=== PATIENT | male | born 1960 | race Caucasian/White ===

== ENCOUNTER 2020-01-28 07:28 | Outpatient (CLI) | payer OTHER, SELFPAY ==
[2020-01-28 20:12] LABS: COVID-19 RT-PCR UVMMC Result Negative (Negative)
== END 2020-01-28 07:48 ==
PROVIDERS: PCP Physician Assistant Medical; Visit Provider Student in an Organized Health Care Education/Training Program
DX: Z01.818 Encounter for other preprocedural examination (principal); Z11.59 Encounter for screening for other viral diseases
CPT/HCPCS: U0003

== ENCOUNTER 2020-02-01 09:04 | Day surgery (SDC) | payer OTHER, SELFPAY ==
[2020-02-01] VITALS (8 sets, daily range): BP systolic 88–131; BP diastolic 39–77; PULSE 57–62; RESP 14–22; TEMP 36.3–36.7; O2SAT 93–97
[2020-02-01] MEDS: Lactated Ringers 1,000 ML 80 ML IV (09:50)
--- NOTE | 2020-02-01 10:17 | PDOC.DSDIS_ITS ---
Discharge Plan Disposition Patient Disposition: HOME Condition: Good Discharge Details Reason For Visit: Left Rotator Cuff Tear Attending Provider: Greg Lee Primary Care Provider: Nadeem Lenz Home Meds and New Rx's Prescriptions: New acetaminophen 500 mg tablet 1,000 mg PO Q8H PRN (Reason: pain) Qty: 90 RF: 3 docusate sodium [Colace] 100 mg capsule 100 mg PO BID PRNQty: 10 RF: 0 ibuprofen 600 mg tablet 600 mg PO TID PRNQty: 90 RF: 3 oxycodone 5 mg tablet 5 mg PO Q4H Qty: 18 RF: 0 Continued aspirin 81 mg tablet,delayed release (DR/EC) 81 mg PO DAILY RF: 0 lisinopril-hydrochlorothiazide 10-12.5 mg tablet 1 tab PO DAILY RF: 0 Discharge Instructions Stand Alone Forms: Jesus Ray w/RCR Referrals: Greg Lee MD [ [facility] STAFF PHYSICIAN] - Equipment/Supplies: Sling Activity:: Stay in sling except for pendulum and hygiene Remove Dressings/Wound Care:: 72 hours Shower/Bathe:: 72 hours Diet:: As Tolerated Discharge Orders Discharge Orders: Discharge Order (Routine); Ordered 02/01/20 Ordered By: Greg Lee DS: Diagnosis Discharge Diagnosis (1) Subacromial impingement of left shoulder: Status: Acute (2) Left rotator cuff tear: Status: Acute (3) Arthritis of left acromioclavicular joint: Status: Acute
[2020-02-01] MEDS: ceFAZolin 2 GM/50 ML BAG IVPB (10:35)
[2020-02-01] MEDS: EPINEPHrine 30 MG/30 ML VIAL (13:08)
--- NOTE | 2020-02-01 16:20 | W.PM.OP ---
Date of service: 02/01/20 Time of Service: 13:46 Operative Note Operative Note DATE OF PROCEDURE: 02/01/20 PRE-OP DIAGNOSIS: Left Rotator Cuff Tear, Left Acromioclavicular Arthritis, Left Subacromial Impingement, Left Biceps Tendonitis POST-OP DIAGNOSIS: other (Left Rotator Cuff Tear, Left Acromioclavicular Arthritis, Left Subacromial Impingement) PROCEDURE: - Mini-Open Distal Clavicle Excision - Arthroscopic Rotator Cuff Repair - Extensive debridement of anterior and posterior glenohumeral joint and rotator cuff - Subacromial Debridement with Acromioplasty SURGEON: Greg Lee DRESSING ROOM ATTENDANT: Marcie Palma ANESTHESIA: GETA and regional ESTIMATED BLOOD LOSS: 0 PATHOLOGY: none sent COMPLICATIONS: None Patient was transported to: PACU Patient's condition: stable Indications: I have seen Ford in clinic for a painful shoulder. Pathology was confirmed based on MRI and exam findings. Nonoperative measures were exhausted but disability and pain persisted. I discussed shoulder arthroscopy and procedures. I reviewed the risks of the procedures to include, but not limited to, bleeding, infection, pain, stiffness, damage to nerves or vessels, recurrence, hardware failure, blood clot. Despite these risks, the patient elected to proceed. Findings: There were signs of arthrosis of the distal clavicle with a large inferior osteophyt; a 1cm wedge was resected A diagnostic arthroscopy was performed with the following findings: Articular Side - Glenohumeral Joint: minimal arthritic change - Labrum: Mild fraying but no detachment from the superior glenoid - Cuff: Complete tear of the supraspinatus, partial articular sided tear of the upper subscapularis - Biceps: Minimal inflammatory change, no tearing, well seated in the groove and stable, and no anchor tearing or detachment Subacromial Side - Bursal: Thickened bursa - Rotator Cuff: Frayed and laminated complete supraspinatus tear with intact infraspinatus - Large downsloping anterolateral spur from the acromion. Procedure Description: Ford was greeted in the preoperative holding area where the correct side was identified and marked. The consent was reviewed with the patient and signed. The history and physical was updated. All questions were answered. Ford was taken back to the PACU for administration of an intrascalene nerve block. He was then taken to the operating room. The patient was placed into the supine position on the operating room table. A general anesthetic was administered. Ford was then positioned in the beach chair position. All bony prominences were well padded. The head was placed in a foam head wood grinder in a neutral position. Prophylactic antibiotics in the form of Cefazolin were administered. The left arm/shoulder was then prepped with Chloraprep and draped in a standard fashion with stockinette and shoulder drape. A timeout to confirm correct identity, side and site, procedure, allergies, anesthesia, and medical concerns was performed. The arm was placed into a pneumatic hazel, [id number]. The distal clavicle was approached through a 2 and half centimeter incision within Kristyn's lines. This was made overlying the AC joint. The skin was incised sharply. The deeper tissues dissected with electrocautery. The clavipectoral fascia was identified and incised longitudinally off of the distal clavicle and onto the acromion. This was reflected subperiosteally to expose the distal clavicle and the AC joint. With adequate exposure a 1 cm bony resection was made using an oscillating saw. This is angled posteriorly to avoid any posterior impingement. Once it was fully resected, it was inspected to make sure it is of adequate width. A rasp was used to smooth the bony edges inferiorly and posteriorly primarily. A small amount of bone wax was placed on the end of the distal clavicle. The wound was thoroughly irrigated. There is no active bleeding. The clavipectoral fascia was then closed with a 0 Vicryl in a watertight fashion. The subcutaneous tissues were then reapproximated with a 2-0 Vicryl. The shoulder arthroscopy was then performed. The glenohumeral joint was injected with 20 cc of normal saline with good flow back. A standard posterior portal was made and the joint was entered atraumatically with a blunt arthroscope. Once inside we had good visualization of the structures of the glenohumeral joint. An anterior portal was established with spinal needle localization. A 6.5 mm cannula was inserted. A probe was then used to perform a diagnostic arthroscopy. There is noted to be no significant cartilage damage of the glenoid humeral joint. The labrum was intact anteriorly and posteriorly. There was some fraying at the labral edge from 11-3 o'clock. However, there is no detachment of the labrum from the superior glenoid. There were no loose bodies in the inferior pouch. The superior rotator cuff was completely torn off the greater tuberosity involving the majority of the supraspinatus tendon. The biceps tendon was without tearing and with an intact anchor. I was expecting this to be much worse than it was. I brought the biceps tendon into the joint using a probe but still did not find any significant tearing and only mild inflammatory changes. The subscapularis grossly intact however the upper fibers, proximally 5 to 7 mm worth was elevated off of the footprint of the lesser tuberosity. The labrum was debrided back to a smooth surface. Once again, it was inspected and did not show any signs of detachment or instability. The subscapularis was fully investigated and since there was exposed footprint I decided to fix this as a partial articular sided type tear. A anterolateral portal was established through the defect in the rotator cuff using a 7.5 mm cannula. Shaver was then used to debride the footprint to expose bone. A 4.5 mm Mitek Healix anchor was then inserted through the anterior portal and into the footprint of the subscapularis. Has had excellent purchase. I then placed 2 horizontal mattresses into the leading edge of the healthy portion of the subscapularis tendon. This brought the thicker, healthier portion of the subscapularis tendon down onto the footprint which was exposed. The sutures were tied using standard arthroscopic knot tying techniques and then cut. The torn tendon edge of the supraspinatus was debrided from within the joint and then the scope was removed. The arthroscope was then inserted into the subacromial space. The 6.5 mm cannula was placed lateral to the CA ligament. A complete bursectomy is performed anteriorly, posteriorly, and laterally with electrocautery and shaver. Visualization was limited though due to the significant impingement of the inferior aspect of the acromion. I went ahead and did a provisional acromioplasty to hopefully improve visualization but the tendon edge was notably frayed and continually was obstructing visualization. Therefore, I proceeded with the shaver to debride the tendon edge back to a healthier appearing surface. The tendon appeared to pull off of the footprint mid substance and left a very frayed edge. I debrided the frayed tendon edge base from the footprint to expose the bone with excellent visualization. After this debridement was performed, I now had excellent exposure of the rotator cuff. The tear involves the entirety of the supraspinatus tendon and extended to the biceps tendon as well. Placed to medial row anchors, 4.5 mm Mitek Healix. 4 horizontal row mattress sutures were then placed and tied from posterior to anterior reapproximate the tendon back down to bone. I then placed 2 lateral row anchors, 4.75 mm Mitek Healix. One limb from each suture was then placed into the knotless anchors completing a double row repair of the supraspinatus tendon. There was a large anterolateral spur. Viewed from the lateral portal, a 5.0 mm gill was then inserted from the posterior portal. The anterolateral corner of the acromion was then resected in plane with the posterior slope of the acromion. The scope equipment was removed from the shoulder. Excess fluid was evacuated. The portal sites were closed with 3-0 Monocryl. The wounds were dressed with Steri-Strips, 4 x 4's, ABDs, Medipore tape. A sling was applied. The patient tolerated the procedure well and was returned to the PACU in a stable condition suffering no known complication.
== END 2020-02-01 17:10 | disposition home or self-care (01) ==
PROVIDERS: PCP Physician Assistant Medical; Visit Provider Student in an Organized Health Care Education/Training Program
PROC: (CPT 29827; principal; 2020-02-01 10:30)
PROC: (CPT 23430; 2020-02-01 10:30)
DX: M75.122 Complete rotator cuff tear or rupture of left shoulder, not specified as traumatic (principal); M75.52 Bursitis of left shoulder; M19.012 Primary osteoarthritis, left shoulder; G89.18 Other acute postprocedural pain; M75.42 Impingement syndrome of left shoulder; M75.22 Bicipital tendinitis, left shoulder
CPT/HCPCS: 29827; 29823; 23120; 29826; 76942; L3670; J0690; J1100; J1885; J2001; J2370; J2405; J2704

== ENCOUNTER 2020-02-05 19:53 | Emergency (ER) | payer OTHER, SELFPAY ==
[2020-02-05 19:57] VITALS: BP 158/73; PULSE 58; RESP 16; TEMP 37; O2SAT 95
--- NOTE | 2020-02-05 20:00 | DI.RAD_ITS ---
EXAM: XR CHEST 2V PA LATERAL CLINICAL HISTORY: bilat leg edema TECHNIQUE: 2D digital imaging was performed. Lateral is suboptimal due to overlying upper extremity . COMPARISON: No exams were available for comparison FINDINGS: MEDIASTINUM: Normal. HEART: Normal. PULMONARY VASCULATURE: Normal. LUNGS: Clear. PLEURAL SPACE: No pleural effusion or pneumothorax. BONE:Degenerative changes are seen in the spine. OTHER FINDINGS:Normal. IMPRESSION: No acute pulmonary findings. DATA REPOSITORY: RADIATION DOSE DELIVERED:
--- NOTE | 2020-02-05 20:00 | RT.EKG_ITS ---
APPROVED REPORT Exam: Resting ECG Patient Location: E HR:53 bpm ECG Measurements Heart Rate 53 AXIS [place] 156 P 21 QRSd 103 QRS -19 QT 413 T 33 QTc 388 <Conclusion> Sinus bradycardia...rate< 60 Normal Intervals Normal Brea Normal Electrocardiogram Except for Rate
[2020-02-05 20:30] VITALS: RESP 18
[2020-02-05 20:35] VITALS: BP 123/76; PULSE 54; PULSE 55; RESP 15; O2SAT 95
[2020-02-05 20:35] LABS: Abs Immature Grans 0.02 k/cumm (0.0-0.09); Absolute Basophil Count 0.02 k/cumm (0.0-0.2); Absolute Eosinophil Count 0.12 k/cumm (0.0-0.7); Absolute Lymphocyte Count 1.59 k/cumm (1.2-3.4); Absolute Monocyte Count 0.53 k/cumm (0.11-0.7); Absolute Neutrophil Count 3.82 k/cumm (1.2-6.7); Basophils % 0.3; HGB 13.2 g/dL (13.5-17.5); Immature Grans % 0.3 %; Lymphocytes % 26.1; Mean Corpuscular Hemoglobin 29.1 pg (27.0-33.0); Mean Corpuscular Volume 88.3 fL (80-95); Mean Platelet Volume 10.2 fL (8.0-11.0); Monocytes % 8.7; Neutrophils % 62.6; Platelet Count 286 x1000/uL (130-400); RBC 4.53 m/cumm (4.50-6.00); RBC Distribution Width 13.6 % (11.8-14.1)
[2020-02-05 20:44] VITALS: PULSE 56; RESP 15; O2SAT 94
[2020-02-05 20:55] LABS: ALT 129 U/L (16-63); AST 118 U/L (15-37); Albumin 3.2 g/dL (3.4-5.0); Alkaline Phosphatase 82 U/L (46-116); Anion Gap 7.8 mmol/L (3-11); BUN 23 mg/dL (7-18); Bilirubin, Total 0.2 mg/dL (0.2-1.0); CO2 28.2 mmol/L (21.0-32.0); CREATININE 1.37 mg/dL (0.70-1.30); Calcium 8.6 mg/dL (8.5-10.1); Chloride 102 mmol/L (98-107); Glucose 105 mg/dL (74-106); NT-proBNP 45 pg/mL (<300); Potassium 3.4 mmol/L (3.5-5.1); Sodium 138 mmol/L (136-145); Total Protein 6.7 g/dL (6.4-8.2); Troponin I < 0.05 ng/mL (<0.06)
--- NOTE | 2020-02-05 21:01 | DI.VRAD_ITS ---
PROCEDURE INFORMATION: Exam: XR Chest, 2 Views Exam date and time: 02/05/2020 8:40 PM Age: 59 years old Clinical indication: Other: Bilat leg edema; Prior surgery; Surgery type: L shoulder TECHNIQUE: Imaging protocol: XR of the chest Views: 2 views. COMPARISON: No relevant prior studies available. FINDINGS: Lungs: No focal consolidation. Pleural space: No pleural effusion. No pneumothorax. Heart/Mediastinum: Heart size is borderline. Vasculature: Tortuous aorta. Bones/joints: There are multilevel degenerative changes in the spine. IMPRESSION: No acute cardiopulmonary disease. Dictated and Authenticated by: iMcah Blair MD. Ordering:NIRMAL Curiel MD
[2020-02-05 21:10] VITALS: PULSE 54; RESP 16; O2SAT 94
--- NOTE | 2020-02-05 21:25 | W.ED.GENAD ---
Discharge Plan Disposition Patient Disposition: HOME Discharge Details Chief Complaint: GenMedical Clinical Impression: Edema leg Primary Care Provider: Nadeem Lenz ED Provider: Moisés Barrientos Home Meds and New Rx's Prescriptions: Continued aspirin 81 mg tablet,delayed release (DR/EC) 81 mg PO DAILY RF: 0 lisinopril-hydrochlorothiazide 10-12.5 mg tablet 1 tab PO DAILY RF: 0 acetaminophen 500 mg tablet 1,000 mg PO Q8H PRN (Reason: pain) Qty: 90 RF: 3 ibuprofen 600 mg tablet 600 mg PO TID PRNQty: 90 RF: 3 Discharge Instructions Instructions: Edema (ED) Additional Instructions: Your examination is not consistent with DVT. Work-up in the ER is unremarkable, laboratory values, EKG, cardiac enzymes, chest x-ray, sodium, renal function all unremarkable. The most likely cause of your swelling is dependent edema secondary to recent surgery and inactivity. As we discussed elevate your lower extremities, wear compression stockings, attempt to be more active, watch both your water and sodium intake. I would like you to reach out to your primary care provider on Friday for prompt outpatient reevaluation. I also recommend reaching out to Dr. Lee's office on Friday to see if they would like to see you sooner than your scheduled appointment on the , I will forward this note to his office. Please watch for new or worsening symptoms including but not excluded to chest pain, shortness of breath, fever, increased leg swelling, warmth, redness, pain, etc. and return immediately to the ER. Discharge Data Discharge Date/Time-TO BE ENTERED AT DEPARTURE: 02/05/20 21:40 Medical Decision Making 59-year-old gentleman with history of hypertension, recent left rotator cuff surgery presents with mild bilateral leg swelling that he noticed when getting in the shower today. Since the surgery he reports that his activity has been less than his baseline. He has been sitting or lying down. He denies any chest pain, shortness of breath, leg pain, redness, warmth, discomfort. Denies history of DVT or PE. Left arm is in a sling but is neuro, vascular, tendon intact. Most likely diagnosis is that of dependent edema however I do believe obtaining routine laboratory values and BNP, EKG, chest x-ray, troponin is reasonable to rule out CHF. Given his recent surgery I would not obtain a d-dimer as it will likely be elevated. Clinically he does not appear to have an obvious DVT and given he has 1+ edema bilaterally, highly unlikely that he has bilateral DVTs. Patient is comfortable with this plan. Heart rate in the high 50s, pulse ox is in the mid 90s on room air, lungs are clear to auscultation. No cough. WBC of 6.10, hemoglobin 13.2 hematocrit 40, platelets 286. Creatinine 1.37, GFR 53, troponin less than 0.05, BNP 45 Chest x-ray unremarkable, confirmed by radiology. Upon reevaluation patient remains asymptomatic. Discussed his work-up which is benign. Renal function reveals a minimally elevated creatinine, no clinical signs of CHF or other fluid retention. We discussed signs and symptoms of DVT-PE in length. It is a Friday night and ultrasound is not available at this time however clinically, DVT is extremely low suspicion. I do not believe that an emergent transfer this evening for ultrasound studies is indicated, nor do I want to initiate prophylactic anticoagulation therapy given his recent surgery. Patient plans to contact his primary care provider on Friday for prompt outpatient reevaluation. I did recommend that he contact his orthopedic surgeon to see if they want to see him sooner than the and I will send this note to Dr. Lee. Lastly he was encouraged to return to the ER for new or worsening symptoms. Otherwise he will plan to elevate his legs, watch both his sodium and water intake, and wear compression stockings. Medical Records Medical records reviewed: Yes I reviewed the patient's medical records. Imaging Data Radiologic Study: Attestation: I personally reviewed and interpreted this imaging study as follows: Imaging: X-Ray Radiologist's impression: Chest x-ray negative Lab Data Lab results reviewed: Yes I reviewed the patient's lab results. Lab results narrative: Laboratory Tests Range/Units 02/05/20 02/05/20 02/05/20 20:24 20:24 20:24 WBC (4.4-10.8) k/cumm 6.10 RBC (4.50-6.00) m/cumm 4.53 Hgb (13.5-17.5) g/dL 13.2 L Hct (40.0-50.0) % 40.0 MCV (80-95) fL 88.3 MCH (27.0-33.0) pg 29.1 MCHC (32.0-36.0) g/dL 33.0 RDW (11.8-14.1) % 13.6 Plt Count (130-400) x1000/uL 286 MPV (8.0-11.0) fL 10.2 Immature Gran % % 0.3 Neutrophils % 62.6 Lymphocytes % 26.1 Monocytes % 8.7 Eosinophils % 2.0 Basophils % 0.3 Absolute Neutrophils (1.2-6.7) k/cumm 3.82 Absolute Lymphocytes (1.2-3.4) k/cumm 1.59 Absolute Monocytes (0.11-0.7) k/cumm 0.53 Absolute Eosinophils (0.0-0.7) k/cumm 0.12 Absolute Basophils (0.0-0.2) k/cumm 0.02 Sodium (136-145) mmol/L 138 Potassium (3.5-5.1) mmol/L 3.4 L Chloride (98-107) mmol/L 102 Carbon Dioxide (21.0-32.0) mmol/L 28.2 Anion Gap (3-11) mmol/L 7.8 BUN (7-18) mg/dL 23 H Creatinine (0.70-1.30) mg/dL 1.37 H Estimated GFR/1.73 m2 (mL/min/1.73m2) 53.00 Glucose (74-106) mg/dL 105 Calcium (8.5-10.1) mg/dL 8.6 Total Bilirubin (0.2-1.0) mg/dL 0.2 AST (15-37) U/L 118 H ALT (16-63) U/L 129 H Alkaline Phosphatase (46-116) U/L 82 Troponin I (<0.06) ng/mL < 0.05 NT-Pro-B Natriuret Pep (<300) pg/mL 45 Total Protein (6.4-8.2) g/dL 6.7 Albumin (3.4-5.0) g/dL 3.2 L ECG Data Attestation: I personally reviewed and interpreted this ECG (s) as follows: Interpretation: EKG performed at 2020, reviewed and interpreted with Dr. Ch. Sinus bradycardia, ventricular to 53, no STEMI. Please see his official read HPI General Mode of arrival: ambulatory. Date/Time Provider Initiated Documentation: 02/05/20 19:55. Limitations to Documentation: no limitations. Information obtained by: patient. HPI Narrative: This is a 59-year-old gentleman with a history of hypertension, left rotator cuff surgery performed by Dr. Lee on 02-01-20. He is right-hand dominant. He reports that the surgery went well, was same day, and is scheduled to follow-up on the with orthopedics. Today when getting in the shower he noticed that there was mild swelling in both of his lower extremities. He denies any pain whatsoever in his legs, fever, chest pain, shortness of breath, cough, history of DVT or PE. Denies history of CHF. He has had no redness, warmth, weeping to either of his legs. He reports he has mild discomfort at the site of his shoulder surgery that he feels as though is to be expected with his recent surgery, has no concerns regarding his left shoulder. Denies any numbness, tingling, weakness in all 4 of his extremities. Related Data Home Medications Medication Instructions Recorded Confirmed aspirin 81 mg tablet,delayed 81 mg PO DAILY 01/10/20 02/05/20 release lisinopril-hydrochlorothiazide 1 tab PO DAILY 01/26/20 02/05/20 acetaminophen 1,000 mg PO Q8H PRN #90 tab 02/01/20 02/05/20 ibuprofen 600 mg PO TID PRN #90 tab 02/01/20 02/05/20 Previous Rx's Medication Instructions Recorded acetaminophen 1,000 mg PO Q8H PRN #90 tab 02/01/20 ibuprofen 600 mg PO TID PRN #90 tab 02/01/20 Allergies Allergy/AdvReac Type Severity Reaction Status Date / Time No Known Allergies Allergy Verified 02/05/20 20:01 General Stated Complaint: GenMedical NELLIE: 3 Review of Systems Constitutional Constitutional: Denies fatigue, Denies fever(s) and Denies weakness ENT Ears, Nose, Mouth, and Throat: Denies neck pain Cardiovascular Cardiovascular: Denies chest pain and Denies dyspnea Respiratory Respiratory: Denies cough and Denies dyspnea Gastrointestinal Gastrointestinal: Denies abdominal pain, Denies nausea and Denies vomiting Musculoskeletal Musculoskeletal: Denies neck pain, Denies numbness and Denies tingling Integumentary/Breasts Skin/Breast: Denies rash Neurologic Neurologic: Denies numbness, Denies tingling and Denies weakness Endocrine Endocrine: Denies fatigue Hematologic/Lymphatic Hematologic/Lymphatic: Denies easy bleeding and Denies easy bruising [facility] Medical History Hypertension (Chronic) Surgical History History of surgical removal of ganglion cyst (Acute) Hx of appendectomy (Chronic) Hx of umbilical hernia repair (Acute) Social History Smoking/Tobacco Use Status: Former Tobacco Use Quit Date: 07/28/05 Alcohol Intake: current Alcohol Intake frequency: holidays/special occasions only Alcohol type: beer Drug use: Never Substance use type: does not use Current gender identity: male Do you feel safe at home: Yes Do you feel safe in your relationship?: Yes Exam Const General: cooperative, healthy appearing, comfortable and no acute distress Orientation: alert, awake and oriented x3 HENMT Head: normal to inspection, normocephalic and atraumatic Mouth: moist mucous membranes Eyes Conjunctivae: conjunctivae normal Sclera: sclerae normal Neck Neck: normal visual inspection, full ROM, trachea midline, supple and nontender Resp Effort & Inspection: normal respiratory effort and able to speak in complete sentences Auscultation: clear to auscultation bilaterally Cardio Rate: regular rate Rhythm: regular rhythm GI Palpation: soft, not firm, no guarding, not rigid and nontender Back/Spine/Pelvis Back: No back tenderness Skin General skin exam: no rashes or lesions noted Neuro General: patient alert, patient awake, patient oriented x3, moves all extremities and no focal motor deficits Cognition: normal cognition Speech: speech normal Gait: normal gait Motor: muscle tone normal throughout and strength 5/5 throughout Sensory Exam: no sensory deficits noted Extrem General: capillary refill normal and pedal edema bilaterally (1+ pitting edema, no erythema, warmth, tenderness. Negative Homans sign) Right upper extremity: normal to inspection, full ROM and normal capillary refill Left upper extremity: normal capillary refill and shoulder/upper arm (Patient wearing a sling, held in adduction. No erythema or infection) Details: other (Distally neuro, vascular, tendon intact.) Right lower extremity: full ROM, normal capillary refill and edema Left lower extremity: full ROM, normal capillary refill and edema Other: Normal pedal pulses Psych Appearance: grossly normal Mental Status: mental status grossly normal Course Vital Signs Vital signs: Vital Signs Temperature 37.0 C 02/05/20 19:57 Pulse 58 L 02/05/20 19:57 Respiratory Rate 16 02/05/20 19:57 Blood Pressure 158/73 H 02/05/20 19:57 Pulse Oximetry 95 02/05/20 19:57 Temperature 37.0 C 02/05/20 19:57 Temperature Source Temporal Artery Scan 02/05/20 19:57 Pulse 54 L 02/05/20 20:35 Pulse 54 L 02/05/20 21:10 Respiratory Rate 16 02/05/20 21:10 Respiratory Effort Non-Labored 02/05/20 20:30 Respiratory Depth Normal 02/05/20 20:30 Blood Pressure 123/76 02/05/20 20:35 Blood Pressure Mean 87 02/05/20 20:35 Pulse Oximetry 94 L 02/05/20 21:10 Oxygen Delivery Method Room Air 02/05/20 19:57 Oxygen Flow Rate 0 02/05/20 19:57 Pain Level 0 02/05/20 19:57 Lab/Test Results Lab/Test Results: Laboratory Tests Range/Units 02/05/20 02/05/20 02/05/20 20:24 20:24 20:24 WBC (4.4-10.8) k/cumm 6.10 RBC (4.50-6.00) m/cumm 4.53 Hgb (13.5-17.5) g/dL 13.2 L Hct (40.0-50.0) % 40.0 MCV (80-95) fL 88.3 MCH (27.0-33.0) pg 29.1 MCHC (32.0-36.0) g/dL 33.0 RDW (11.8-14.1) % 13.6 Plt Count (130-400) x1000/uL 286 MPV (8.0-11.0) fL 10.2 Immature Gran % % 0.3 Neutrophils % 62.6 Lymphocytes % 26.1 Monocytes % 8.7 Eosinophils % 2.0 Basophils % 0.3 Absolute Neutrophils (1.2-6.7) k/cumm 3.82 Absolute Lymphocytes (1.2-3.4) k/cumm 1.59 Absolute Monocytes (0.11-0.7) k/cumm 0.53 Absolute Eosinophils (0.0-0.7) k/cumm 0.12 Absolute Basophils (0.0-0.2) k/cumm 0.02 Sodium (136-145) mmol/L 138 Potassium (3.5-5.1) mmol/L 3.4 L Chloride (98-107) mmol/L 102 Carbon Dioxide (21.0-32.0) mmol/L 28.2 Anion Gap (3-11) mmol/L 7.8 BUN (7-18) mg/dL 23 H Creatinine (0.70-1.30) mg/dL 1.37 H Estimated GFR/1.73 m2 (mL/min/1.73m2) 53.00 Glucose (74-106) mg/dL 105 Calcium (8.5-10.1) mg/dL 8.6 Total Bilirubin (0.2-1.0) mg/dL 0.2 AST (15-37) U/L 118 H ALT (16-63) U/L 129 H Alkaline Phosphatase (46-116) U/L 82 Troponin I (<0.06) ng/mL < 0.05 NT-Pro-B Natriuret Pep (<300) pg/mL 45 Total Protein (6.4-8.2) g/dL 6.7 Albumin (3.4-5.0) g/dL 3.2 L
[2020-02-05 21:40] VITALS: BP 124/70; PULSE 58; RESP 16; TEMP 37; O2SAT 95
== END 2020-02-05 21:40 | disposition home or self-care (01) ==
PROVIDERS: Emergency Provider Physician Assistant; PCP Physician Assistant Medical
DX: R60.0 Localized edema (principal); I10 Essential (primary) hypertension
CPT/HCPCS: 36415; 80053; 93005; 99285; 71046; 83880; 84484; 85025; 93010; 99284

== ENCOUNTER 2020-07-14 03:18 | Outpatient (CLI) | payer OTHER, SELFPAY ==
[2020-07-17 12:09] LABS: COVID-19 RT-PCR Result NEGATIVE (Negative)
== END 2020-07-14 03:38 ==
PROVIDERS: PCP Physician Assistant Medical; Visit Provider Student in an Organized Health Care Education/Training Program
DX: Z11.59 Encounter for screening for other viral diseases (principal); Z01.818 Encounter for other preprocedural examination
CPT/HCPCS: U0003

== ENCOUNTER 2020-07-18 06:13 | Day surgery (SDC) | payer OTHER, SELFPAY ==
[2020-07-18 06:15] VITALS: BP 138/61; PULSE 78; RESP 18; TEMP 36.6; O2SAT 98
--- OUTSIDE RECORDS SUMMARY | 2020-07-18 06:15 | XMS_ITS | Encounter Summary ---
:1960 Author Care Team Providers Name Role Phone Nadeem Lenz Primary Care Provider [phone] Oswald Garner MD Neurologist [phone] Reason for Visit shoulder problem Assessment and Plan 1. Tendonitis of left shoulder 2. Pain in left arm Discussion Note: None recorded.Patient educational handouts: No information available. Plan of Care Reminders Provider Appointments [facility] [place] 40 12/04/2020 BLANKA Ayers 1:40PM Lab None ? ? recorded. Referral None ? ? recorded. Procedures None ? ? recorded. Surgeries None ? ? recorded. Imaging None ? ? recorded. Medications Name Start Date ? ? acetaminophen 500 mg tablet ? Take 2 tablets every 8 hours by oral route as needed. aspirin 81 mg tablet,delayed release ? Take 1 tablet every day by oral route for 90 days. atorvastatin 40 mg tablet ? Take 1 tablet every day by oral route for 90 days. ibuprofen 600 mg tablet ? Take 1 tablet 3 times a day by oral route as needed. lisinopril 10 mg-hydrochlorothiazide 12.5 mg tablet ? Take 1 tablet every day by oral route in the morning for 90 days. Medications Administered None recorded. Vitals None recorded. Results Lab Results None recorded. Allergies Code Code System Name Reaction Severity Onset NKDA ? ? ? Problems Name Status Onset Date Source ? Gout Active 06/21/2019 ? Obesity Active 06/23/2019 ? Hyperlipidemia Active 07/01/2019 ? Prediabetes Active 07/01/2019 ? Carpal Tunnel Syndrome of Left Wrist Active 12/10/2019 ? Cubital Tunnel Syndrome Active 01/11/2020 ? Tear of Left Rotator Cuff Active 01/11/2020 ? Arthritis of Left Acromioclavicular Joint Active 2019 ? Ex-smoker Active 06/12/2020 ? Essential Hypertension Active ? History Umbilical Hernia without Obstruction and Active ? History without Gangrene Pain in Right Knee Active ? History Impingement Syndrome of Left Shoulder Active ? ? Region Procedures Date Name Performed by ? 02/01/2020 Arthroscopic Repair of Rotator Cuff Info rmation not available Notes: Left shoulder. Ar throscopic rotator cuff repair. Extensive debridement of ant and post glenohumeral joint and rotator cuff. Subacromial debridement with acromioplasty.Greg Lee MD.[facility]. [facility] 08/07/2016 Hernia Repair Information not avai lable Notes: umbilical, incarcerated 07/28/1978 Wrist Surgery Information not avai lable Notes: cyst removal ? Appendectomy Information not avai lable Notes: no date in record Vaccine List Vaccine Type Td (adult), adsorbed 09/22/2002 Tdap 09/07/2018?0.5 mL Social History Tobacco Smoking Status Former Smoker Notes: Quit 16 04. Smoked 1 to 1 1/2 PPD off a nd on since age 16. Alcohol intake Occasional Notes: Beer Live alone or with others? 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 Y Blind or serious difficulty Y Notes: We ars corrective seeing lense Hard of hearing or deaf in Y one or both ears? 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 Past Encounters 06/05/2020 Tendonitis of Left Shoulder; Pain in Lef t Arm Elias Blackburn, PT: [address] [facility], [address], [place] [address], Ph. History of Present Illness None recorded. Review of Systems None recorded. Physical Exam ? [facility] Rehab Discharge Summary (non patient visit) Reported By: Patient Rehab Discharge Summary: Therapy Diagnosis ; L RTC re pair. Therapy Summary number of sessions:20; Progression fro m PROM, AAROM shoulder mobilization to dynamic RTC restrengthening and dynamic multi plane movement exs. Re ason for Discharge Patient did not return for additional th erapy. Therapy Assessment ; Ford had called after his last se ssion holding PT for this episode. He was doing well a t that time with improved ADL movement capacity and comfor t. He had some residual ROM deficits and overhead ROM de ficit s but felt comfortable with self management. We hel d PT for 30 days and he did not contact us. He is DC from PT for this episode at this time. Goal Status: ; Short Term Go al(s)Short Term Goals (including time frames) (to be met in 3 weeks 1. pt have pain free PROM hand to head L UE met 2. pt have WNL L scapula and trunk AROM met 3. pt have minimal L anterior shoulder sensitivity metLong Term Goal(s)Long Ter m Goals (including time frames) (to be met in 16 weeks 1. pt able to reach overhead L UE no shoulder pain sxs met2. pt a ble to reach for self care L UE non pain met 3. pt able to r each to A with transfer into work auto no pain met 4,. pt sleep no L shoulder pain sxs met5. pt I with dynamic UE P RE HEP met. Discharge Plan: discharge from therapy today
--- OUTSIDE RECORDS SUMMARY | 2020-07-18 06:15 | XMS_ITS | Encounter Summary ---
:1960 Author Care Team Providers Name Role Phone Nadeem Lenz Primary Care Provider [phone] Oswald Garner MD Neurologist [phone] Reason for Visit Left shoulder problem Assessment and Plan 1. Tendonitis of left shoulder 2. Pain in left arm Discussion Note: None recorded.Patient educational handouts: No information available. Plan of Care Reminders Provider Appointments [facility] [place] 40 12/04/2020 BLANKA Ayers 1:40PM Lab None [...] rotator cuff. Subacromial debridement with acromioplasty.Greg Lee MD.[facility]. 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 Past Encounters 04/21/2020 Tendonitis of Left Shoulder; Pain in Lef t Arm Elias Blackburn, PT: [address] [address], Ph. 04/14/2020 Tendonitis of Left Shoulder; Pain in Lef t Arm Elias Blackburn, PT: [address] [address], Ph. 04/11/2020 Tendonitis of Left Shoulder; Pain in Lef t Arm Elias Blackburn, PT: [address] [address], Ph. 04/07/2020 Tendonitis of Left Shoulder; Pain in Lef t Arm Elias Blackburn, PT: [address] [address], Ph. 04/04/2020 Tendonitis of Left Shoulder; Pain in Lef t Arm Elias Blackburn, PT: [address] [facility], [address], [place] [address], Ph. 03/31/2020 Tendonitis of Left Shoulder; Pain in Lef t Arm Elias Blackburn, PT: [address] [facility], [address], [place] [address], Ph. 03/27/2020 Tendonitis of Left Shoulder; Pain in Lef t Arm Elias Blackburn, PT: [address] [facility], [address], [place] [address], Ph. 03/23/2020 Tendonitis of Left Shoulder; Pain in Lef t Arm Elias Blackburn, PT: [address] [facility], [address], [place] [address], Ph. History of Present Illness ? [facility] PT Daily Reported By: Patient Visit Type: Today's therapy visit: ; Monika ly Visit Subjective:: Subjective ; Stiff, but been busy around the house Response to Previous Session:: Response to Previous Se ssion ; Increased flexion AROM Reported Changes in Symptoms:: Reported Changes in Sym ptoms ; no sig pain in L shoulder region Impairment Observations and Tolerance to Previous Leve l of Function ; limited L UE Daily Living:: mobility and strength, pain with dynamic ADL. Current Level of Functi on ; tightnes with overhead AROM, no sig p ain, limited dynamic UE strength Notes: <p>No sig pain issues at thi s time</p> Review of Systems None recorded. Physical Exam ? [facility] PT Assessment and Plan Reported By: Patient *Patient Education: Patient Education Provided T ginger ; HEP review, variable plane PRE ex, GH ro tation mobility ex *Physical Therapy Assessment: Physical Therapy Assessm ent ; Ford demonstrating gains in strength and overhe ad mobility with improved scapula humeral rhy thm. He cont to have GH ER ROM restrictions but is moving without sig pain anf will cont ot make gains wit HEP. He is comfortable with variable pl ane movements and having no sig residual pain followi ng PRE. We will cont to modify dynamic HEP to maximi ze strength and functional capacity. Rehab P otential: good rehab potential to reach the esta blished goals Short Term Goal(s): Short Term Goals (including time frames) ; To be met in 3 weeks 1. pt have jaramillo fr ee PROM hand to head L UE met2. pt have WNL L scapu la and trunk AROM met 3. pt have minimal L anterior s houlder sensitivity met Rod Puller Goal(s): Jail Goals (including t yesenia frames) ; to be met in 16 weeks 1. pt able to re ach overhead L UE no shoulder pain sxs (met)2. pt able to reach for self care L UE non pain behind ba ck(met)3. pt able to reach to A with transfer int o work auto no pain (met)4,. pt sleep no L shoul kvng pain sxs ( met)5. pt I with dynamic UE PRE HEP(me t)New LTG . pt able to lift 10lb overhead n o pain2. pt able to push through L UE for floor to st and transfers no pain3. pt I with dynamic UE PRE HEP Patient Goal(s): Patient Goal (s): ; regain n ormal use of L UE without pain (not met) Frequency: Treatment frequency: 1 time (s) a week Intensity: Treatment Intensity: 45 min Duration: Treatment duration: 3 week( s) Planned Treatment Interventions: PT Charge Code 79313: therapeutic exercises, 68878: therapeutic activity, 31216: manual therapy, 24172: neuromuscular reeducation Discharge Plan: Discharge Plan: upon achievi ng goals or maximal benefit of therapy services *Plan: Therapy Plan Continue as per plan of care.; cont overhead AROM progression *Time: Time In: ; 1215. Time Out: ; 1300. Total Time: ; 45 min
--- OUTSIDE RECORDS SUMMARY | 2020-07-18 06:15 | XMS_ITS ---
:1960 Author Care Team Providers Name Role Phone NADEEM CEVALLOSANEY Primary Care Provider [phone] DOROTHEA CAMARA MD Neurologist [phone] Allergies Code Code System Name Reaction Severity Status Onset NKDA ? Medications Name Status Start Date Stop Date ? ? acetaminophen 500 mg tablet Active ? Not available aspirin 81 mg tablet,delayed Active ? Not available release atorvastatin 40 mg tablet Active ? Not av ailable calcium 167 mg-magnesium 65 mg-herbal complex no.180 200 mg tabl et Completed ? 04/29/2018 Take 1 tablet every day by oral route. celecoxib 200 mg capsule Completed ? 020 DOK 100 mg capsule Completed ? 06/12/2020 hydrochlorothiazide 12.5 mg tablet Completed ? 01/08/2019 hydrocodone 5 mg-acetaminophen 325 Active ? Not available mg tablet ibuprofen 600 mg tablet Active ? Not avai lable indomethacin 50 mg capsule Completed ? 07/09 lisinopril 10 Active ? Not available mg-hydrochlorothiazide 12.5 mg tablet naproxen 500 mg tablet Completed ? 0 naproxen sodium 220 mg tablet Completed 03/09/2015 2 (two) Tablet: two times daily prn oxycodone 5 mg tablet Completed ? 06/12/2020 prednisone 20 mg tablet Completed ? 07/09/20 19 Problems Name Status Onset Date Source ? [...] rotator cuff. Subacromial debridement with acromioplasty.Greg Lee MD.[facility]. [facility] 08/07/2016 Hernia Repair Information not avai lable Notes: umbilical, incarcerated 07/28/1978 Wrist Surgery Information not avai lable Notes: cyst removal ? Appendectomy Information not avai lable Notes: no date in record 12/15/2017 Unlisted Imaging Order [facility] Radiology (Internal) [address] [place] [address] (Work Place) 12/15/2017 XR, Lumbosacral Spine, 2 or 3 View [facility] Radiology (Internal) [address] [place] [address] ( (Work Place) 04/29/2018 XR, Shoulder, 2 or More View [facility] Radiology (Internal) [address] [place] [address] ( (Work Place) 09/07/2018 XR, Cervical Spine, 4 or 5 View [facility] Radiology (Internal) [address] [place] [address] (Work Place) 10/12/2018 XR, Shoulder, [facility]Internal[facility] [address] [place] [address] ( (Work Place) 12/13/2019 MRI, Shoulder, W/o Contrast [facility] Radiology (Internal) [address] [place] [address] ( (Work Place) 06/12/2020 LDCT, Chest, for Lung Cancer Screening [facility] Radiology (Internal) [address] [place] [address] (Work Place) Results Lab Results Date Name Specimen Result Interpretation Description Value Range Status Address ? 12/06/2019 Uric Acid, S ? Urca 7.3 3.5-8.5 Final [facility] [place] Serum or mg/dL mg/dL Hospital Lab Plasma (Internal) : [address] 12/06/2019 BMP, Serum S ? g/r 106 74-106 Final No rth Country or Plasma mg/dL mg/dL Hospita l Lab (Internal) : [address] ? ? S High Bun 22 9-20 Final [place] [facility] mg/dL mg/dL Hospital L ab (Internal) : [address] ? ? S ? Crea 1.20 0.66-1.25 Final [place] mg/dL mg/dL Hospital L ab (Internal) : [address] ? ? S ? Ca 9.6 8.4-10.2 Final [place] mg/dL mg/dL Hospital L ab (Internal) : [address] ? ? S ? Na 137 137-145 Final [place] mmol/L mmol/L Hospital L ab (Internal) : [address] ? ? S ? K 3.8 3.5-5.1 Final [place] mmol/L mmol/L Hospital L ab (Internal) : [address] ? ? S ? Cl 98 98-107 Final [place] mmol/L mmol/L Hospital L ab (Internal) : [address] ? ? S ? Tco2 28.0 22.0-30.0 Final [place] mmol/L mmol/L Hospital L ab (Internal) : [address] 10/14/2019 HbA1C BLD ? Ha1C 6.0 % 4.0-6.0 % Final [facility] Country (Hemoglobin Hospi katalina Lab a1C), Blood (Inte rnal): [address] 10/14/2019 BMP, Serum S ? g/r 106 74-106 Final No rth Country or Plasma mg/dL mg/dL Hospita l Lab (Internal) : [address] ? ? S High Bun 28 9-20 Final [place] mg/dL mg/dL Hospital L ab (Internal) : [address] ? ? S ? Crea 1.10 0.66-1.25 Final [place] mg/dL mg/dL Hospital L ab (Internal) : [address] ? ? S ? Ca 9.0 8.4-10.2 Final [place] mg/dL mg/dL Hospital L ab (Internal) : [address] ? ? S ? Na 137 137-145 Final [place] mmol/L mmol/L Hospital L ab (Internal) : [address] ? ? S ? K 3.9 3.5-5.1 Final [place] mmol/L mmol/L Hospital L ab (Internal) : [address] ? ? S ? Cl 101 98-107 Final [place] mmol/L mmol/L Hospital L ab (Internal) : [address] ? ? S ? Tco2 26.0 22.0-30.0 Final [facility] ountry mmol/L mmol/L Hospital L ab (Internal) : [address] 10/14/2019 Lipid S ? Chol 185 50-200 Final [place] Panel, mg/dL mg/dL Hospital L ab Serum (Internal) : [address] ? ? S ? Trig 134 10-150 Final [place] mg/dL mg/dL Hospital L ab (Internal) : [address] ? ? S ? Hdl 47 40-60 Final [place] [facility] mg/dL mg/dL Hospital L ab (Internal) : [address] ? ? S ? Ldl 111 0-130 Final [place] try mg/dL mg/dL Hospital L ab (Internal) : [address] 10/14/2019 Microalbumi UR High Malb 29.0 5.0-16.7 Final [facility] n, Urine mg/L mg/L Hospital Lab (Internal) : [address] ? ? UR High U-crea, Spot 208 30-125 Final [facility] Country mg/dL mg/dL Hospital L ab (Internal) : [address] ? ? UR ? Microalb/cre 13.9 0.0-30.0 Final [facility] Country a Ratio ug/mg ug/mg Hospital Lab (Internal) : [address] 10/14/2019 PSA, Serum S ? PSA Scrn 2.0 0.0-4.0 Final [place] or Plasma NG/mL NG/mL Hospita l Lab (Internal) : [address] 07/31/2019 Colon ? No ? ? ? Exact Cancer observation Scien arvin Screening, recorded. Lab oratories Stool (Cologuard Orders Onl y): [address] , [place] 07/01/2019 BMP, Serum S High g/r 111 74-106 Final No rth Country or Plasma mg/dL mg/dL Hospita l Lab (Internal) : [address] ? ? S - Bun 17 9-20 Final [place] mg/dL mg/dL Hospital L ab (Internal) : [address] ? ? S - Crea 1.00 0.66-1.25 Final [place] mg/dL mg/dL Hospital L ab (Internal) : [address] ? ? S - Ca 9.3 8.4-10.2 Final [place] mg/dL mg/dL Hospital L ab (Internal) : [address] ? ? S - Na 137 137-145 Final [place] mmol/L mmol/L Hospital L ab (Internal) : [address] ? ? S - K 4.3 3.5-5.1 Final [place] mmol/L mmol/L Hospital L ab (Internal) : [address] dada ? ? S - Cl 102 98-107 Final [place] mmol/L mmol/L Hospital L ab (Internal) : [address] ? ? S - Tco2 26.0 22.0-30.0 Final [place] mmol/L mmol/L Hospital L ab (Internal) : [address] 07/01/2019 HbA1C BLD - Ha1C 5.9 % 4.0-6.0 % Final [facility] Country (Hemoglobin Hospi katalina Lab a1C), Blood (Inte rnal): [address] 07/01/2019 Lipid S High Chol 235 50-200 Final [place] Panel, mg/dL mg/dL Hospital L ab Serum (Internal) : [address] ? ? S High Trig 153 10-150 Final [facility] try mg/dL mg/dL Hospital L ab (Internal) : [address] ? ? S Low Hdl 39 40-60 Final [facility] try mg/dL mg/dL Hospital L ab (Internal) : [address] ? ? S High Ldl 165 0-130 Final [facility] try mg/dL mg/dL Hospital L ab (Internal) : [address] 07/01/2019 Glucose S High F Gluc, S 111 74-106 Final N orth Country Tolerance mg/dL mg/dL Hospita l Lab Test, (Internal) : Post-glucol [address], 2-Hour [address] ? ? S High 30 Min 186 70-140 Final [facility] ntry gluc,S mg/dL mg/dL Hospital L ab (Internal) : [address] ? ? S High 1 hr gluc,S 185 70-140 Final [place] mg/dL mg/dL Hospital L ab (Internal) : [address] ? ? S - 2 hr gluc,S 108 70-140 Final [place] mg/dL mg/dL Hospital L ab (Internal) : [address] 06/19/2019 CBC W/ Auto BLD - Wbc 10.0 5.0-10.0 Final [facility] Diff 10*3/uL 10*3/uL Hospital Lab (Internal) : [address] ? ? BLD - Rbc 4.87 4.60-6.00 Final [facility] ountry 10*6/uL 10*6/uL Hospital Lab (Internal) : [address] ? ? BLD - Hgb 14.6 14.0-18.0 Final [facility] ountry g/dL g/dL Hospital L ab (Internal) : [address] ? ? BLD - Hct 42.9 % 41.0-51.0 Final [facility] ountry % Hospital L ab (Internal) : [address] ? ? BLD - Mcv 88.1 fL 80.0-96.0 Final [facility] fL Hospital L ab (Internal) : [address] t ? ? BLD - Mch 30.0 pg 26.0-32.0 Final [facility] pg Hospital L ab (Internal) : [address] ? ? BLD - Mchc 34.0 31.0-35.0 Final [facility] ountry g/dL g/dL Hospital L ab (Internal) : [address] ? ? BLD - Rdw 13.1 % 11.5-14.5 Final [facility] ountry % Hospital L ab (Internal) : [address] ? ? BLD - Plt 256 130-450 Final [facility] ntry 10*3/uL 10*3/uL Hospital Lab (Internal) : [address] ? ? BLD - Anc 7.86 ? Final [facility] try 10*3/uL Hospital Lab (Internal) : [address] ? ? BLD High Neutro 78.6 % 40.0-75.0 Final [facility] % Hospital L ab (Internal) : [address] ? ? BLD Low Lymph 12.3 % 20.0-50.0 Final [facility] ount % Hospital L ab (Internal) : [address] ? ? BLD - Larimer 7.3 % 2.0-10.0 Final [facility] unt % Hospital L ab (Internal) : [address] ? ? BLD - Eos 1.2 % 1.0-6.0 % Final [facility] L [facility] (Internal) : [address] ? ? BLD - Baso 0.3 % 0.0-1.0 % Final [facility] L ab (Internal) : [address] ? ? BLD - Ig 0.3 % 0.0-0.9 % Final [facility] Hospital L ab (Internal) : [address] 06/19/2019 BMP, Serum S High g/r 119 74-106 Final No rth Country or Plasma mg/dL mg/dL Hospita l Lab (Internal) : [address] ? ? S High Bun 22 9-20 Final [place] mg/dL mg/dL Hospital L ab (Internal) : [address] ? ? S - Crea 1.00 0.66-1.25 Final [place] mg/dL mg/dL Hospital L ab (Internal) : [address] ? ? S - Ca 9.2 8.4-10.2 Final [place] mg/dL mg/dL Hospital L ab (Internal) : [address] ? ? S - Na 138 137-145 Final [place] mmol/L mmol/L Hospital L ab (Internal) : [address] ? ? S - K 3.7 3.5-5.1 Final [place] mmol/L mmol/L Hospital L ab (Internal) : [address] ? ? S - Cl 101 98-107 Final [place] [facility] mmol/L mmol/L Hospital L ab (Internal) : [address] ? ? S - Tco2 27.0 22.0-30.0 Final [place] [facility] [place] mmol/L mmol/L Hospital L ab (Internal) : [address] 06/19/2019 Uric Acid, S - Urca 7.8 3.5-8.5 Final N orth [place] Serum or mg/dL mg/dL Hospital Lab Plasma (Internal) : [address] 01/08/2019 CBC W/ Auto BLD - Wbc 7.3 5.0-10.0 Final [place] Diff 10*3/uL 10*3/uL Hospital Lab (Internal) : [address] ? ? BLD - Rbc 4.75 4.60-6.00 Final [place] [facility] [place] 10*6/uL 10*6/uL Hospital Lab (Internal) : [address] ? ? BLD - Hgb 14.2 14.0-18.0 Final [place] g/dL g/dL Hospital L ab (Internal) : [address] ? ? BLD - Hct 43.4 % 41.0-51.0 Final [place] % Hospital L ab (Internal) : [address] ? ? BLD - Mcv 91.4 fL 80.0-96.0 Final [facility] fL Hospital L ab (Internal) : [address] ? ? BLD - Mch 29.9 pg 26.0-32.0 Final [facility] pg Hospital L ab (Internal) : [address] ? ? BLD - Mchc 32.7 31.0-35.0 Final [facility] ountry g/dL g/dL Hospital L ab (Internal) : [address] ? ? BLD - Rdw 12.9 % 11.5-14.5 Final [facility] ountry % Hospital L ab (Internal) : [address] ? ? BLD - Plt 253 130-450 Final [facility] ntry 10*3/uL 10*3/uL Hospital Lab (Internal) : [address] ? ? BLD - Anc 4.97 ? Final [facility] try 10*3/uL Hospital Lab (Internal) : [address], [address] t ? ? BLD - Neutro 67.8 % 40.0-75.0 Final [facility] % Hospital L ab (Internal) : [address] ? ? BLD - Lymph 22.6 % 20.0-50.0 Final [facility] ountry % Hospital L ab (Internal) : [address] ? ? BLD - Larimer 7.5 % 2.0-10.0 Final [facility] unt % Hospital L ab (Internal) : [address] ? ? BLD - Eos 1.1 % 1.0-6.0 % Final [facility] ount Hospital L ab (Internal) : [address] ? ? BLD - Baso 0.3 % 0.0-1.0 % Final [facility] ount Hospital L ab (Internal) : [address] ? ? BLD - Ig 0.7 % 0.0-0.9 % Final [facility] Hospital L ab (Internal) : [address] 01/08/2019 CMP, Serum S - g/r 98 74-106 Final No rth Country or Plasma mg/dL mg/dL Hospita l Lab (Internal) : [address] ? ? S High Bun 21 9-20 Final [place] mg/dL mg/dL Hospital L ab (Internal) : [address] ? ? S - Crea 1.00 0.66-1.25 Final [place] mg/dL mg/dL Hospital L ab (Internal) : [address] ? ? S - Ca 9.2 8.4-10.2 Final [place] mg/dL mg/dL Hospital L ab (Internal) : [address] ? ? S - Na 138 137-145 Final [place] mmol/L mmol/L Hospital L ab (Internal) : [address] ? ? S - K 3.7 3.5-5.1 Final [place] mmol/L mmol/L Hospital L ab (Internal) : [address] ? ? S - Cl 103 98-107 Final [place] [facility] mmol/L mmol/L Hospital L ab (Internal) : [address] ? ? S - Tco2 29.0 22.0-30.0 Final [place] mmol/L mmol/L Hospital L ab (Internal) : [address] ? ? S - Tp 7.2 6.3-8.2 Final [place] g/dL g/dL Hospital L ab (Internal) : [address] ? ? S - Alb 4.0 3.5-5.0 Final [place] g/dL g/dL Hospital L ab (Internal) : [address] ? ? S - Tbil 0.3 0.2-1.3 Final [place] mg/dL mg/dL Hospital L ab (Internal) : [address] ? ? S - Alp 77 U/L 50-136 Final [facility] U/L Hospital L ab (Internal) : [address] ? ? S - Alt (Sgpt) 26 U/L 21-72 U/L Final [facility] rth Country Hospital L ab (Internal) : [address] ? ? S - Ast (Sgot) 52 U/L 17-59 U/L Final No rth [facility] L ab (Internal) : [address] Past Encounters 06/12/2020 Impingement Syndrome of Left Shoulder Re gion; Cubital Tunnel Syndrome; Administration of Influenza Vaccine; Ex-smoker Nadeem Lenz PA: [address] [place] [address], Ph. 06/05/2020 Tendonitis of Left Shoulder; Pain in Lef t Arm Elias Bennettin, PT: [address] [place] [phone], Ph. 04/28/2020 Tendonitis of Left Shoulder; Pain in Lef t Arm Elias Blackburn, PT: [address] [address], Ph. 04/21/2020 Tendonitis of Left Shoulder; Pain in Lef t Arm Elias Blackburn, PT: [address] [address], Ph. 04/14/2020 Tendonitis of Left Shoulder; Pain in Lef t Arm Elias Blackburn, PT: [address] [address], Ph. 04/11/2020 Tendonitis of Left Shoulder; Pain in Lef t Arm Elias Blackburn, PT: [address] [address], Ph. 04/07/2020 Tendonitis of Left Shoulder; Pain in Lef t Arm Elias Blackburn, PT: [address] [address], Ph. 04/04/2020 Tendonitis of Left Shoulder; Pain in Lef t Arm Elias Blackburn, PT: [address] [address], Ph. 03/31/2020 Tendonitis of Left Shoulder; Pain in Lef t Arm Elias Blackburn, PT: [address] [facility] [address], [place] [address], Ph. 03/27/2020 Tendonitis of Left Shoulder; Pain in Lef t Arm Elias Blackburn, PT: [address] [facility] [address], [place] [address], Ph. 03/23/2020 Tendonitis of Left Shoulder; Pain in Lef t Arm Elias Blackburn, PT: [address] [facility] [address], [place] [address], Ph. 03/20/2020 Tendonitis of Left Shoulder; Pain in Lef t Arm Elias Blackburn, PT: [address] [facility] [address], [place] [address], Ph. 03/16/2020 Tendonitis of Left Shoulder; Pain in Lef t Arm Elias Blackburn, PT: [address] [facility] [address] , [facility], [place] [address], Ph. 03/13/2020 Tendonitis of Left Shoulder; Pain in Lef t Arm Elias Blackburn, PT: [address] [facility] [address] , [address], [place] [address], Ph. 03/09/2020 Tendonitis of Left Shoulder; Pain in Lef t Arm Elias Blackburn, PT: [address] [facility], [facility], [place] [address], Ph. 03/06/2020 Tendonitis of Left Shoulder; Pain in Lef t Arm Elias Blackburn, PT: [address] [facility] [address], [place] [address], Ph. 03/03/2020 Tendonitis of Left Shoulder; Pain in Lef t Arm Elias Bnenettin, PT: [address] [facility] [address], [place] [address], Ph. 02/28/2020 Tendonitis of Left Shoulder; Pain in Lef t Arm Elias Bennettin, PT: [address] [facility] [address] [address], Ph. 02/23/2020 Tendonitis of Left Shoulder; Pain in Lef t Arm Elias Blackburn, PT: [address] [address], Ph. 02/21/2020 Tendonitis of Left Shoulder; Pain in Lef t Arm Elias Blackburn, PT: [address] [address], Ph. 02/17/2020 Tendonitis of Left Shoulder; Pain in Lef t Arm Elias Blackburn, PT: [address] [place] [phone], Ph. 12/10/2019 Gout; Impingement Syndrome of Left Shoul kv[place] Region; Carpal Tunnel Syndrome of Left Wrist BLANKA Ayers: [address] [place] [phone], Ph. 09/01/2019 Kash Jones MD: [address] [place] [phone], Ph. 07/09/2019 Adult Health Examination; Prediabetes; E ssential Hypertension; Hyperlipidemia; Screening for Malignant Neoplasm of Prostate; Administration of Influenza Vaccine Nadeem Lenz PA: [address] [place] [phone], Ph. Social History Tobacco Smoking Status Former Smoker Notes: Quit 16 04. Smoked 1 to 1 1/2 PPD off and on since age 16. Vaccine List Vaccine Type Td (adult), adsorbed 09/22/2002 Tdap 09/07/2018?0.5 mL Plan of Care Reminders Provider Appointments None ? ? recorded. Lab None ? ? recorded. Referral None ? ? recorded. Procedures None ? ? recorded. Surgeries None ? ? recorded. Imaging None ? ? recorded. Vitals 06/12/2020 01:00PM Follow Up 40 Height Weight BMI Blood Pressure 181.61 cm 122.42 kg 37.1 kg/m2 140/88 mm[Hg] 12/10/2019 03:15PM Acute 20 Height Weight BMI Blood Pressure 181.61 cm 125.55 kg 38.1 kg/m2 152/90 mm[Hg] 07/09/2019 07:40AM CPE 40 Height Weight BMI Blood Pressure 181.61 cm 129.93 kg 39.4 kg/m2 122/84 mm[Hg] 01/08/2019 02:40PM Follow Up 20 Height Weight BMI Blood Pressure 181.61 cm 128.37 kg 38.9 kg/m2 130/78 mm[Hg] 10/12/2018 08:30AM Consult 30 Height Weight BMI Blood Pressure 181.61 cm 125.96 kg 38.2 kg/m2 134/86 mm[Hg] 10/05/2018 09:40AM Follow Up 40 Height Weight BMI Blood Pressure 181.61 cm 125.33 kg 38 kg/m2 133/84 mm[Hg] 10/01/2018 01:20PM Procedure 20 with Visit Height Weight BMI Blood Pressure 181.61 cm 125.65 kg 38.1 kg/m2 136/82 mm[Hg] 09/22/2018 08:20AM New Patient 40 Height Weight BMI Blood Pressure 182.88 cm 126.1 kg 37.7 kg/m2 146/80 mm[Hg] 09/07/2018 03:20PM Any 40 Height Weight BMI Blood Pressure 211.45 cm 125.74 kg 28.1 kg/m2 154/90 mm[Hg] 04/29/2018 03:00PM Acute 20 Height Weight BMI Blood Pressure 211.45 cm 124.28 kg 27.8 kg/m2 132/90 mm[Hg] 12/15/2017 04:00PM CPE 30 Height Weight BMI Blood Pressure 211.45 cm 125.65 kg 28.1 kg/m2 126/82 mm[Hg] 06/16/2017 Weight Blood Pressure 126.1 kg 138/82 mm[Hg] 12/16/2016 Height Weight Blood Pressure 182.88 cm 126.1 kg 140/90 mm[Hg] 06/05/2016 Height Weight Blood Pressure 182.88 cm 123.83 kg 122/84 mm[Hg] 04/08/2016 Height Weight Blood Pressure 182.88 cm 122.92 kg 120/90 mm[Hg] 11/20/2015 Height Weight Blood Pressure 182.88 cm 122.02 kg 124/80 mm[Hg] 05/17/2015 Height Weight Blood Pressure 182.88 cm 125.19 kg 116/74 mm[Hg] 04/28/2015 Weight Blood Pressure 127.46 kg 168/100 mm[Hg] 06/23/2012 Height Weight Blood Pressure 182.88 cm 122.47 kg 131/85 mm[Hg] 06/04/2010 Height Weight Blood Pressure 180.34 cm 123.83 kg 134/88 mm[Hg] 01/23/2010 Weight Blood Pressure 120.66 kg 128/78 mm[Hg] 12/21/2009 Weight Blood Pressure 119.29 kg 152/90 mm[Hg] 11/02/2009 Height Weight Blood Pressure 180.34 cm 117.48 kg (1) 142/98 mm[Hg] (2) 150/98 mm[Hg]
--- OUTSIDE RECORDS SUMMARY | 2020-07-18 06:15 | XMS_ITS | Encounter Summary ---
:1960 Author Care Team Providers Name Role Phone Nadeem Lenz Primary Care Provider [phone] Oswald Garner MD Neurologist [phone] Reason for Visit shoulder problem Assessment and Plan 1. Tendonitis of left shoulder 2. Pain in left arm Discussion Note: None recorded.Patient educational handouts: No information available. Plan of Care Reminders Provider Appointments [facility] 40 12/04/2020 BLANKA [...] rotator cuff. Subacromial debridement with acromioplasty.Greg Lee MD.[facility]. [facility] 08/07/2016 Hernia Repair Information not avai [...] off a nd on since age 16. 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 Y Blind or serious difficulty Y Notes: We ars corrective seeing lense Most Recent Tobacco Use 01/08/2019 Screening E-cigarette/Vape Status Never used electronic cigarettes Advance directive N Tobacco-years of use 34 Alcohol intake Occasional Notes: Beer Live alone or with others? with others Notes: Marlena nce Hard of hearing or deaf in Y one or both ears? 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 Past Encounters 04/28/2020 Tendonitis of Left Shoulder; Pain in Lef t Arm Elias Blackburn, PT: [address] [address], Ph. 04/21/2020 Tendonitis of Left Shoulder; Pain in Lef t Arm Elias Blackburn, PT: [address] [address], Ph. 04/14/2020 Tendonitis of Left Shoulder; Pain in Lef t Arm Elias Blackburn, PT: [address] [address], Ph. 04/11/2020 Tendonitis of Left Shoulder; Pain in Lef t Arm Elias Blackburn, PT: [address] [address], Ph. 04/07/2020 Tendonitis of Left Shoulder; Pain in Lef t Arm Elias Blackburn, PT: [address] [facility] [address], [place] [address], Ph. 04/04/2020 Tendonitis of Left Shoulder; Pain in Lef t Arm Elias Blackburn, PT: [address] [facility] [address], [place] [address], Ph. 03/31/2020 Tendonitis of Left Shoulder; Pain in Lef t Arm Elias Blackburn, PT: [address] [facility] [address], [place] [address], Ph. History of Present Illness ? [facility] PT Daily Reported By: Patient Visit Type: Today's therapy visit: ; Monika donnelly Visit Subjective:: Subjective ; Could barely mo ve it yesterday, feels fine again today Response to Previous Session:: Response to Previous Se ssion ; Single day with decreased shoulder AROM Reported Changes in Symptoms:: Reported Changes [...] of Systems None recorded. Physical Exam ? [facility] PT Assessment and Plan Reported By: Patient *Patient Education: Patient Education Provided T ginger ; Wall mobility ex ed, variable closed chain st retch ex ed, hand weight curl/press ex ed, *Physical Therapy Assessment: Physical Therapy Assessm ent ; Ford had a single day with ROM loss unassociated w ith any activity that he could recall. He was able to resume normal AROM the next day and has no sig resi dual pain issues. He is doing well with functional t asks, still having some strength deficits, but no pa in with daily movements. He has cont end ROM abductio n, flexion hypo mobility and I anticipate with wall m obility exs this will resolve. He is doing well a nd pleased with gains in L shoulder ADL capacity. Ria ab Potential: good rehab potential to reach the esta blished goals Short Term Goal(s): Short Term Goals (including time frames) ; To be met in 3 weeks 1. pt have jaramillo fr ee PROM hand to head L UE met2. pt have WNL L scapu la and trunk AROM met 3. pt have minimal L anterior s houlder sensitivity met Taxation Accountant Goal(s): Taxation Accountant Goals (including t yesenia frames) ; to [...] s) Planned Treatment Interventions: PT Charge Code 45547: therapeutic exercises, 36183: therapeutic activity, 52184: manual therapy, 19301: neuromuscular reeducation Discharge Plan: Discharge Plan: upon achievi ng goals or maximal benefit of therapy services *Plan: Therapy Plan Continue as per plan of care.; cont overhead AROM progression *Time: Time In: ; 1225. Time Out: ; 1255. Total Time: ; 30 min
--- OUTSIDE RECORDS SUMMARY | 2020-07-18 06:15 | XMS_ITS | Encounter Summary ---
:1960 Author Care Team Providers Name Role Phone Nadeem Lenz Primary Care Provider [phone] Oswald Garner MD Neurologist [phone] Reason for Visit Impingement syndrome of left shoulder re mileson; Cubital tunnel syndrome Assessment and Plan 1. Impingement syndrome of left shoulder region 06/12/2020: LT shoulder improv ing after RCT repair with distal clavicle excision and biceps tenodesis on 02/01/2020. Patient completed physical therapy. Patient states work will not let him retu rn until he is 100%. Anticipate f/u Dr Toshia Lee 06/26/2020. 12/16/2019: Pt called c/o persistent pain LT shoulder not relieved after steroid inject, naproxen 500 mg bid, acetaminophen 650 mg, 2 tab q 8 hr, hydrocodone- acet 5-324, 1 tab q 6 hr. Possible supraspinatus tear, partial tea r biceps tendon per MR report. Ortho consult pending at [facility]. Rx celecoxib 200 mg. 2 cap initial dose. May take 1 more cap on day 1. Then 1 cap bid prn pain. #20. d/c naproxen with celecoxib. 12/11/2019: On-call note. Patient consent ed to call. 9:37 AM?9:43 AM, 6 minutes total time. Mr. Nazario complains of persistent pain left shoulder. A little bit lower than yesterday. I had a karan d time sleeping last night. Steroid wit h lidocaine injection to left shoulder at primary care–[place] 12/10/2019. He denies increased pain, Fever,redness, warmth, swelling At left shoulder. He is taking naproxen 500 mg twice daily, las t dose 6 AM today. He did take hydrocodone?acetaminophen May 2017. Rx Hydrocodone 5 mg?acetaminophen 325 mg . 1 tab every 4?6 hours as needed pain #10. Call clinic if no improvement by Tuesday 12/12 in which case I would recommend referral back to Dr. Jones at orthopedics for reevaluation. 12/10/2019: Repeat steroid injection to l eft shoulder today 80 mg Depo-Medrol. Procedure well-tolerated. Explained if he develops recurrent left shoulder pain would recommend that we get him back in with Dr. Jones for reevaluation. 10/05/2018: Reviewed workup to date. Revi ewed risk versus benefit steroid injection. Patient wanted to try a steroid injection. This was done in clinic today and was well-tolerated. He will call if no improvement. 09/22/2018: Patient cannot afford to do p hysical therapy due to $7000 deductible. Given rotator cuff and shoulder conditioning program handout from [email or web address]. He will do home exercise program. Also will u se OTC ibuprofen up to 600 mg every 6?8 hours as needed pain. Explained we could do steroid injection at primary care or refer directly to orthopedics. Have again reviewed stepwise workup and adalberto atment. We have done the x-rays, ideally he would have a 4-6-week trial of PT. Then possibly a steroid injection. If no improvement after PT and injection would then recommend MRI and orthopedic consult . Because of his high deductible health insurance this plan may need to change. 09/07/2018: Reviewed LT shoulder XR 2017 with pt. Early degenerative change at AC and glenohumeral joint, down-sloping acromion. Reviewed step-kenyon Tx. Refer [place] [facility] for LT shoulder impingement a nd cervical radiculopathy. Use otc ibupr ofen or naproxen prn. f/u 1 mo. Consider steroid injection. May need MRI and ortho consult if no improvement. 2. Cubital tunnel syndrome 06/12/2020: Anticipate carpal tunnel release with ortho surgery. Carpal tunnel release was delayed with his left shoulder surgery. 10/05/2018: Reviewed neuro consult with N CV/EMG. Refer to [facility] orthopedics for carpal tunnel syndrome left wrist and cubital tunnel syndrome left elbow. 3. Administration of influenza v accine 4. Ex-smoker 06/12/2020: Reviewed risk vers us benefit LDCT chest for lung cancer screening with shared decision making. Mr. Correa consents to LDCT chest. See order. Reinforced importance of remaining smoke-free. ? LDCT, chest, for lung canc er screening - 60 y.o. man. 1 to 1-2 ppd smoking age 17-50. Quit 2008. Discussion Note: None recorded.Patient educational handouts: No information available. Plan of Care Reminders Provider Appointments [facility] Nadeem Lenz, 12/04/2020 PA 1:40PM Lab None ? ? recorded. Referral None ? ? recorded. Procedures None ? ? recorded. Surgeries None ? ? recorded. Imaging LDCT, Chest, [place] for [facility] 06/12/2020 Hospital Radiolo gy Screening (Internal) Medications Name Start Date ? ? acetaminophen [...] 90 days. Medications Administered None recorded. Vitals Height Weight BMI Blood Pressure 5 ft 11.5 in 269 lbs 14.4 oz 37.1 kg/m2 140/88 mm[Hg] Results Lab Results None recorded. Allergies Code [...] rotator cuff. Subacromial debridement with acromioplasty.Greg Lee MD.[facility]. [facility] 08/07/2016 Hernia Repair Information not avai lable Notes: umbilical, incarcerated 07/28/1978 Wrist Surgery Information not avai lable Notes: cyst removal ? 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 Past Encounters 06/12/2020 Impingement Syndrome of Left Shoulder Re gion; Cubital Tunnel Syndrome; Administration of Influenza Vaccine; Ex-smoker Nadeem Lenz PA: [address] [place] [address], Ph. 06/05/2020 Tendonitis of Left Shoulder; Pain in Lef t Arm Elias Blackburn, PT: [address] [facility] [address], [place] [address], Ph. History of Present Illness Note: <p>06/12/2020:
Pt reports he is still not 100%.
Pain/discomfort with overuse.</p><p>Not back to work yet, could go back with limited restrictions but states hisemployer will not allow him to return until he can work at full capacity. Surgeon's office has been providing work notes.
Will go back to Ortho 06/26.</p><p>influenza vaccination was declined at this visit.</p><p>
</p><p>Provider note: I have a follow up with Dr. Lee on Jun 26.</p><p>34 pack-yr smoking Hx. Quit 2008.</p><p>Hold scheduling CPE or f/u in clinic until Covid-19 activity in [place] decreases.</p><p& gt;
</p><p>
</p><p> ___</p><p>12/10/2019: Patient is here for follow up on gout. Patient reports it is feeling way better now. Reports within two tablets of Naproxen the pain was resolving.</p><p>
</p><p>Left shoulder pain-- reports pain today is 8/10. 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 Has had difficulty sleeping d/t pain.
Would like injection.</p><p>Provider note: Serum uric acid 7.3, creatinine normal at 1.20 on 12/05.</p><p>04/30/2018: XR LT shoulder. Mild degenerative changes. Infero-lateral sloping of acromion could predispose to symptoms of impingement.</p><p>My carpal tunnel has gotten a lot worse. I need to have the surgery.</p><p>Pt requests carpal tunnel release. Will refer back to Dr. Jones.

Per Dr. Jones</p><p>Follow-up for patient who had last been seen October 26, 2018. This was for a left shoulder condition. Patient has never had surgery and he has not had any investigations. He was greatly help with the infiltration we gave him at that time. For the last week or so he has had increased pain in his left shoulderbut without history of injury. He came here today to have to be reinfiltrated. 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 Comprehensive General Adult ROS Reported By: Patient Constitutional: Constitutional: no fever, no chills Cardiovascular: Cardiovascular: no chest jeff n, no arm pain on exertion, no shortness of breath when wal rosibel, no shortness of breath when lying down, no palpitations, no known heart murmur, no ankle swelling Respiratory: Respiratory: no cough, no wh eezing, no shortness of breath Musculoskeletal: Musculoskeletal: no neck jeff n, arthralgias/joint pain; Left shoulder pain improving. Elgin sanchez complains of persistent symptoms carpal tunnel syndr ome left wrist and hand Neurologic: Neurologic: numbness Hematologic/Lymphatic: Hematologic/Lymphatic no swo llen glands Notes: <p>17 lb wt loss x 07/09/201 9</p> Physical Exam ? Notes: <p>General: WD, WN adult mal e, central obesity, NAD</p><p>Neck: No deformity. Decreased flex/ext. +tendern ess over T-7, trigger point left trapezius</p><p>Chest: LCTA. No rales, rhonchi, wheeze. S1-S2. RRR. No murmur.
Abdomen: Central obesity. Normal bowel sounds. Soft, nontender. No HSM.
</p><p>MSK: Did not repeat shoulder exam today. Neuro decreased light touch left index finger. Gri p strength 5/5 bilat. Radial pulses 2+.</p><p>No deformity LT wrist. +Tinel's, +Phalen's</p><p>Extremities: No pedal edema
</p><p>Lym phatics: no lymphadenopathy</p><p>
</p>
--- NOTE | 2020-07-18 07:18 | PDOC.DSDIS_ITS ---
Discharge Plan Disposition Patient Disposition: HOME Condition: Good Discharge Details Reason For Visit: Left Carpal Tunnel Syndrome Attending Provider: Greg Lee Primary Care Provider: Nadeem Lenz Home Meds and New Rx's Prescriptions: Continued aspirin 81 mg tablet,delayed release (DR/EC) 81 mg PO DAILY RF: 0 lisinopril-hydrochlorothiazide 10-12.5 mg tablet 1 tab PO DAILY RF: 0 acetaminophen 500 mg tablet 1,000 mg PO Q8H PRN (Reason: pain) Qty: 60 RF: 3 ibuprofen 600 mg tablet 600 mg PO TID PRNQty: 30 RF: 3 Discharge Instructions Stand Alone Forms: Jesus Acuña Tunnel Release Referrals: Greg Lee MD [ [facility] STAFF PHYSICIAN] - Activity:: Elevate Remove Dressings/Wound Care:: 72 hours Shower/Bathe:: 72 hours Diet:: As Tolerated Discharge Orders Discharge Orders: Discharge Order (Routine); Ordered 07/18/20 Ordered By: Greg Lee DS: Diagnosis Discharge Diagnosis (1) Left carpal tunnel syndrome: Status: Acute
[2020-07-18] MEDS: Lactated Ringers 1,000 ML 80 ML IV (07:20)
[2020-07-18] MEDS: ceFAZolin 2 GM/50 ML BAG IVPB (07:25)
[2020-07-18] MEDS: Sodium Bicarbonate 50 MEQ/50 ML VIAL (07:52)
[2020-07-18 08:15] VITALS: BP 136/84; PULSE 58; RESP 17; TEMP 36.2; O2SAT 93
--- NOTE | 2020-07-18 10:29 | ROE_ITS ---
Date of service: 07/18/20 Time of Service: 07:47 Operative Note Operative Note DATE OF PROCEDURE: 07/18/20 PRE-OP DIAGNOSIS: Left Carpal Tunnel POST-OP DIAGNOSIS: same PROCEDURE: Left Endoscopic Carpal Tunnel Release SURGEON: Greg Lee ANESTHESIA: GETIglesia ESTIMATED BLOOD LOSS: 0 PATHOLOGY: none sent TOURNIQUET TIME: 5 COMPLICATIONS: None Patient was transported to: same day Patient's condition: stable Indications: I have seen Ford in clinic for symptoms of carpal tunnel syndrome. The numbness, tingling, and pain limited function. Clinical exam findings with nerve conduction tests confirmed the diagnosis of carpal tunnel syndrome. Nonoperative measures such as bracing, time, activity modifications had been tried but disability and pain persisted. I discussed carpal tunnel release with the patient. I reviewed the risks of the procedure to include, but not limited to, bleeding, infection, pain, stiffness, incomplete release, damage to nerves or vessels, persistent numbness, recurrence. Despite these risks, the patient elected to proceed. Findings: There was tightened carpal tunnel. This was dilated and released successfully with the endoscopic with increased space within the tunnel. The antebrachial fascia was released proximally freeing the median nerve at the wrist. Procedure Description: Ford was greeted in the preoperative holding area where the correct side was identified and marked. The consent was reviewed with the patient and signed. The history and physical was updated. All questions were answered. Ford was taken back to the operating room. The patient was placed into the supine position on the operating room table with the left arm on an arm board. A nonsterile tourniquet was placed high onto the arm. All bony prominences were well padded. Prophylactic antibiotics in the form of Cefazolin were administered. The left arm was then prepped with Chloraprep and draped in a standard fashion with stockinette and extremity drape. A timeout to confirm correct identity, side and site, procedure, allergies, anesthesia, and medical concerns was performed. The surgical site was marked in the volar wrist creases in line with the radial border of the fourth ray. This area was anesthetized with approximately 6cc of 1% Lidocaine. The limb was then exsanguinated with an Esmarch. The skin was incised with a 15 blade, approximately 1cm. The skin only was cut and the deeper tissue was dissected bluntly with a tenotomy scissor, avoiding passing nerve and venous structures. The fascia was penetrated and opened bluntly. A two-prong skin hook was placed under this proximal fascial edge. A series of hamate finders were used to identify and dilate the carpal tunnel. Synovial elevator was used to free synovial attachments to the underside of the transverse carpal ligament. My thumb was kept in the palm to dee the distal extent of the carpal tunnel and correctly position the hand. The Microaire endoscope was inserted without difficulty and without resistance. Excellent visualization showed horizontally running fibers of the transverse carpal ligament (TCL). The distal extent of the TCL was visualized and the end of the scope palpated with the thumb. The blade was elevated and withdrawn from distal to proximal. The TCL was split into two flaps. The endoscope was reinserted to confirm complete release and any remnant ligament was incised. The scope was withdrawn and the proximal aspect of the carpal tunnel was grossly inspected and appeared release with the median nerve visible. The antebrachial fascia at the level of the wrist was then freed from the over lying skin and then the underlying median nerve with blunt dissection. This was transected longitudinally for about 3cm proximal to the wrist incision. The wound was then irrigated with easy flow of irrigant distally and proximally. The incision was closed with a single 4-0 Nylon suture. The wound was dressed with Xeroform, Gauze, Kerlix and Colton. The tourniquet was deflated with the initial dressing and held with some pressure. Blood flow returned easily to all digits with capillary refill less than 2 seconds. The patient tolerated the procedure well and was returned to the Same Day Surgery area in a stable condition suffering no known complication.
== END 2020-07-18 08:27 | disposition home or self-care (01) ==
PROVIDERS: PCP Physician Assistant Medical; Visit Provider Student in an Organized Health Care Education/Training Program
PROC: 01N54ZZ Release Median Nerve, Percutaneous Endoscopic Approach (ICD-10-PCS; CPT 29848; principal; 2020-07-18 07:30)
DX: G56.02 Carpal tunnel syndrome, left upper limb (principal); I10 Essential (primary) hypertension
CPT/HCPCS: 29848; J0690; J1885; J2001; J2704